=== PATIENT | female | born 1955 | race Caucasian/White ===

== ENCOUNTER 2022-09-05 18:39 | Emergency (ER) | payer OTHER ==
[~2022-09-05] VITALS: Ht 154.9 cm; Wt 76.2 kg
[~2022-09-05 18:39] MED LIST: AMLO-272 PO; LISI-487 PO
[2022-09-05 19:16] VITALS: BP 142/60
--- NOTE | 2022-09-05 23:00 | NUR ---
Patient being evaluated by physician
--- NOTE | 2022-09-05 23:05 | NUR ---
Patient discharged with v/s stable. Written and verbal after care instructions given and explained BY DR. FELIPE. Patient verbalized understanding. Ambulatory with steady gait. All questions addressed prior to discharge. Advised to follow up with PMD.
== END 2022-09-05 22:05 | disposition home or self-care (01) ==
LOC: MED 18:39
DX: R20.2 Paresthesia of skin (principal); I10 Essential (primary) hypertension; E11.9 Type 2 diabetes mellitus without complications; Z79.899 Other long term (current) drug therapy
CPT/HCPCS: 82948; 99282